=== PATIENT | male | born 1990 | race Caucasian/White ===

== ENCOUNTER 2025-04-07 17:17 | Emergency (ER) | payer OTHER, SELFPAY ==
[2025-04-07] VITALS (21 sets, daily range): BP systolic 124–187; BP diastolic 66–102; PULSE 84–103; RESP 12–54; TEMP 36.6; O2SAT 92–100; BMI 31.7
--- NOTE | 2025-04-07 17:26 | EKG_ITS ---
[address] [address] Test Date: 2025-04-07 Pat Name: Krishan Hutchinson Department: Room: Gender: Male Onboarding Specialist: FABIAN : 1990 Requested By: Order Number: [id number] Reading MD: Tee Garza Measurements Intervals [place] Rate: 84 P: 48 AR: 156 QRS: 22 QRSD: 72 T: 27 QT: 348 QTc: 411 Interpretive Statements Normal sinus rhythm with sinus arrhythmia Electronically Signed On 04-12-2025 0:01:33 PDT by Tee Garza
--- NOTE | 2025-04-07 17:26 | DI.RAD.S_ITS ---
PROCEDURE: XR CHEST 1V INDICATIONS: crushed between heavy machine, abrasion pain Lchest/abd TECHNIQUE: One view of the chest was acquired. COMPARISON: None. FINDINGS: Surgical changes and devices: None. Lungs and pleura: Lungs are clear. No pleural effusions or pneumothorax. Mediastinum: Mediastinal contours appear normal. Heart size is normal. Bones and chest wall: No suspicious bony lesions. Overlying soft tissues appear unremarkable. IMPRESSION: No acute cardiopulmonary abnormality is seen. Approved by: Harrison Rossi M.D. on 04/07/2025 at 16:46
--- NOTE | 2025-04-07 17:26 | DI.CT.S_ITS ---
PROCEDURE: CT TRAUMA CHEST ABDOMEN PELVIS INDICATIONS: trauma TECHNIQUE: After the administration of intravenous contrast, 5 mm thick sections acquired from the lung apices to the symphysis. 2.5 mm thick coronal and sagittal reformats were acquired. Additional 7 mm thick coronal maximum intensity projection (MIP) reformats acquired through the lungs. Optional 10-minute delayed imaging may be performed from the kidneys to the bladder. For radiation dose reduction, the following was used: automated exposure control, adjustment of mA and/or kV according to patient size. COMPARISON: None. FINDINGS: Image quality: Diagnostic. CHEST: Lower Neck: No enlarged lymph nodes. Thyroid: No thyroid nodules which require sonographic evaluation. Axillae: No enlarged lymph nodes. Chest Wall: No subcutaneous gas. Lungs and Pleura: No pulmonary contusions or lacerations. No acute airspace opacities. No pneumothorax or hemothorax. Mediastinum: No mediastinal hematomas. Heart size is normal. No pericardial effusion. Thoracic aorta and pulmonary arteries demonstrate normal size and enhancement. No mediastinal or hilar adenopathy. Esophagus is normal in caliber. No hiatal hernia. ABDOMEN: Liver: No lacerations. Gallbladder: No radiopaque gallstones or wall thickening. Biliary ducts: No biliary dilation. Pancreas: Homogenous enhancement. Spleen: Homogenous enhancement without laceration or hematoma. Adrenal Glands: Symmetric enhancement. Kidneys and Ureters: Symmetric enhancement. No hydronephrosis. No solid mass. No complex renal cystic lesion which requires follow up. Stomach and Bowel: Normal colonic caliber, without significant wall thickening. Peritoneum: No abnormal intraperitoneal fluid. No free air. Ventral Wall: No hernia. Abdominal Nodes: No retroperitoneal or mesenteric adenopathy by size criteria. Vessels: Aorta and inferior vena cava are normal in size. PELVIS: Pelvic Organs: Unremarkable. Bladder: Normal thickness. Pelvic Nodes: No enlarged lymph nodes. Miscellaneous: No inguinal hernias are seen. Bones: Pelvic ring and hip joints appear intact. No displaced rib fractures. IMPRESSION: No evidence of traumatic injury to the chest, abdomen or pelvis. Approved by: Harrison Rossi M.D. on 04/07/2025 at 17:04
--- NOTE | 2025-04-07 17:28 | ED_ITS ---
HPI - Trauma General Chief Complaint: Trauma Stated Complaint: crushed by machine Time Seen by Provider: 04/07/25 17:26 Source: patient, RN notes reviewed and old records reviewed Mode of arrival: Family Vehicle Limitations: no limitations History of Present Illness HPI narrative: 34-year-old male Adderall and trazodone in his only daily medications, no anticoagulants. Patient was at work got crushed between a trailer and a heavy machine that wait about 1500 lb. Patient was bent over the trailer machine came down on his back. He was able to wiggle or pull himself out so his friend at bedside states probably the entire weight was not on him. Patient was stuck for about 15 seconds per bystanders witnessed. Patient has pain on the left side of his chest abdomen and back. Ambulated into the department. Denies injury to his head denies any neck pain, denies any midline back pain. States pain with movement and respirations. Patient does have abrasions over the left anterior chest and back. States it is painful to take a deep breath. Denies nausea or vomiting or other GI or urinary symptoms. Denies any loss of consciousness. Both patient and friend deny any injury to head or neck. Patient denies any other injuries to extremities. States Adderall she was only daily medications, takes trazodone as needed for sleep. Denies any drug allergies. Uses tobacco sometimes. Occasional alcohol none today, no recreational IV drugs. Related Data Previous Rx's ?Medication ?Instructions ?Recorded hydrocodone 5 mg-acetaminophen 325 1 tab PO Q6H PRN pa in #10 tabs 04/07/25 mg tablet Allergies Allergy/AdvReac Type Severity Reaction Status Date / Time No Known Drug Allergies Allergy Verified 04/07/25 17:29 Review of Systems Review of Systems ROS Unobtainable: All systems reviewed & are unremarkable except as noted in HPI and below Patient History Social History Smoking Status: Former smoker Exam Narrative Exam Narrative: GEN: CPatient appears in moderate distress. HEAD: No evidence of trauma, no raccoon/Diaz sign. NECK: Nontender, painless range of motion, trachea midline Negative Nexus criteria, no midline line tenderness, distracting injury, altered mental status, neuro deficit, recent EtOH. EYES: PERRLA, EOMI ENT: External inspection normal, trachea is midline, TM's are normal no hemotypanum, Nares are clear, no septal hematoma, no dental or oral injury, airway is normal and with normal occlusion, No bony tenderness RESP: Chest is mildly tender on the left, no crepitus or subcutaneous emphysema noted and has symmetric movement, no ecchymosis, breath sounds are normal no crackles, wheezes or rales, patient has a erythema and abrasion over the left lower torso and upper abdomen. CVS: Heart sounds are normal, no murmur noted, No JVD. ABG/GI: Mild left upper quadrant tenderness. Soft, normal bowel sounds, no distention, no organomegaly, pelvic rock is negative. NEURO: Oriented AOx3, neuro is grossly intact, sensation and motor is normal all 4 extremities moving, cranial nerves II through XII are intact, GCS is 15 PSYCH: Normal mood and affect SKIN: Intact, warm and dry, no crepitus and without decubitus, see above, no ecchymosis appreciated patient's torso or other extremities neck or head. BACK: No CVA tenderness, no vertebral tenderness, no step-off's, no crepitus EXT: Atraumatic, hips are nontender, no pedal edema, normal color and temperature, normal range of motion of extremities with normal tendon exam, 2+ pulses in all four extremities Initial Vital Signs Initial Vital Signs: Vital Signs Pulse Rate 103 H 04/07/25 17:24 Pulse Oximetry 98 04/07/25 17:24 Course Orders Ordered: Discontinued Medications Hydrocodone Bitart/Acetaminophen (Hydrocodone/Acet 5/325 Prepack) 1 bottle MISC DIRECTED ONE Stop: 04/07/25 18:33 Last Admin: 04/07/25 18:58 Dose: 1 bottle Documented By: LM Diphtheria/Tetanus/Acell Pertussis (Tet,Diph,Pertuss(Acell),Vac/Pf 0.5 Ml Syringe) 0.5 ml IM .ONCE ONE Stop: 04/07/25 17:27 Last Admin: 04/07/25 17:56 Dose: Not Given Documented By: SB Diphtheria/Tetanus/Acell Pertussis (Tet,Diph,Pertuss(Acell),Vac/Pf 0.5 Ml Syringe) 0.5 ml IM .ONCE ONE Stop: 04/07/25 19:06 Last Admin: 04/07/25 19:05 Dose: 0.5 ml Documented By: LM Fentanyl (Fentanyl 100 Mcg/2 Ml Inj) 50 mcg IV NOW ONE Stop: 04/07/25 17:27 Last Admin: 04/07/25 17:47 Dose: 50 mcg Documented By: SB Sodium Chloride (Normal Saline 0.9%) 500 mls @ 1,000 mls/hr IV BOLUS ONE Stop: 04/07/25 18:47 Last Admin: 04/07/25 18:55 Dose: Not Given Documented By: SB Ketorolac Tromethamine (Ketorolac 30 Mg/Ml Vial) 15 mg IV NOW ONE Stop: 04/07/25 18:20 Last Admin: 04/07/25 18:58 Dose: 15 mg Documented By: LM Ondansetron HCl (Ondansetron 4 Mg/2 Ml Inj) 4 mg IV NOW ONE Stop: 04/07/25 17:27 Last Admin: 04/07/25 17:47 Dose: 4 mg Documented By: SB Vital Signs Vital signs: Vital Signs - 8 hr 04/07/25 19:10 04/07/25 19:10 04/07/25 19:20 Pulse Rate 85 87 Respiratory Rate 20 18 Blood Pressure 124/69 Pulse Oximetry 99 99 Oxygen Delivery Method Room Air 04/07/25 19:20 Pulse Rate Respiratory Rate Blood Pressure 127/78 Pulse Oximetry Oxygen Delivery Method MDM - Trauma Lab Data 04/07/25 17:25 04/07/25 17:25 Labs: Lab Results 04/07/25 04/07/25 Range/Units 17:25 18:34 WBC 9.5 (4.5-11.0) X10^3/uL RBC 5.14 (4.5-5.9) X10^6/uL Hgb 15.7 (13.5-17.5) g/dL Hct 45.6 (41-53) % MCV 88.7 (80-100) fL MCH 30.5 (26-34) PG MCHC 34.4 (30-36) % RDW 13.2 (11.6-14.8) % Plt Count 296 (150-400) X10^3/uL Neut % (Auto) 48.6 L (50-75) % Lymph % (Auto) 31.5 (25-40) % [place] % (Auto) 8.4 (3-14) % Eos % (Auto) 10.9 H (2-4) % Baso % (Auto) 0.6 (0-2) % Neut # (Auto) 4600 (5525-2823) /uL Lymph # (Auto) 3000 (4015-8626) /uL [place] # (Auto) 800 (0-900) /uL Eos # (Auto) 1000 H (0-450) /uL Baso # (Auto) 100 (0-100) /uL PT 11.1 (9.4-12.5) SECONDS INR 1.0 (0.9-1.3) APTT 32 (25.1-36.5) SECONDS Sodium 139 (137-145) mmol/L Potassium 4.2 (3.4-5.1) mmol/L Chloride 105 (98-107) mmol/L Carbon Dioxide 23 (22-32) mmol/L BUN 13 (9-20) mg/dL Creatinine 1.24 (0.66-1.25) mg/dL Estimated GFR > 60 (>60) mL/min BUN/Creatinine Ratio 10.5 (6-22) Glucose 105 H (70-99) mg/dL Lactate 1.3 (0.7-2.1) mmol/L Calcium 9.7 (8.4-10.2) mg/dL Total Bilirubin 0.7 (0.2-1.3) mg/dL AST 37 (17-59) IU/L ALT 39 (<50) IU/L Alkaline Phosphatase 78 (38-126) U/L Total Creatine Kinase 293 H (55-170) U/L Troponin I < 0.012 (0.01-0.034) ng/mL Total Protein 8.1 (6.3-8.2) g/dL Albumin 5.0 (3.5-5.0) g/dL Globulin 3.1 (1.7-4.1) g/dL Albumin/Globulin Ratio 1.6 (1.0-2.8) Lipase 61 (23-300) U/L U Opiates 300ng/mL cut Positive H (Negative) Ur Oxycodone Screen Negative (Negative) Urine Methadone Screen Negative (Negative) Ur Barbiturates Screen Negative (Negative) U Tricyclic Antidepress Negative (Negative) Ur Phencyclidine Scrn Negative (Negative) Ur Amphetamines Screen Positive H (Negative) U Methamphetamines Scrn Negative (Negative) Ur MDMA Scrn (Ecstasy) Negative (Negative) U Benzodiazepines Scrn Negative (Negative) Urine Cocaine Screen Negative (Negative) U Marijuana (THC) Screen Negative (Negative) Urine pH Normal (Normal) Urine Specific [place] Normal (Normal) Ethyl Alcohol < 10 (<10) mg/dL Ur Creatinine Normal (Normal) Blood Type O Positive Antibody Screen Negative Urine Dip Bedside Urine Glucose Negative Bedside Urine Bilirubin - Negative Bedside Urine Ketone - Negative Urine Specific [place] 1.015 Bedside Urine Occult Blood - Negative Bedside Urine pH 6.0 Bedside Urine Protein - Negative Bedside Urine Urobilinogen - Negative Bedside Urine Nitrite - Negative Bedside Urine Leukocytes - Negative Esterase ECG Data Attestation: I personally reviewed and interpreted this ECG as follows: Prior ECG tracings: not available for review Interpretation: Sinus rhythm with sinus arrhythmia rate 84 DE 156 QRS is 72 QTC 411. No prior for comparison. MDM Narrative Medical decision making narrative: Labs show normal white count, hemoglobin and platelets, coags are negative, chemistries show normal electrolytes BUN creatinine is 1.24 glucose is 105 lactate 1.3 LFTs are negative total CK is 293. Troponins less than 0.012 with a lipase is 61. ETOH is less than 10. Chest x-ray shows no acute cardiopulmonary abnormality. CT chest abdomen pelvis trauma shows no pulmonary contusions or lacerations, no acute airspace opacities. No pneumothorax or hemothorax. No evidence of traumatic injury to the chest abdomen pelvis review of CT. EKG shows sinus rhythm with sinus arrhythmia, no prior for comparison. Urine Patient had tetanus, Zofran and IV pain medication. Reviewed patient's labs, chest x-ray and CT imaging, no acute changes EKG shows sinus arrhythmia. Patient's vitals has been appropriate and stable. Patient has discomfort but improved with pain medication felt appropriate for discharge but with strict return precautions. Discharge Plan Departure Patient Disposition: Home Clinical Impression: Abrasion of multiple sites of trunk, Contusion of multiple sites of trunk, Crushed injury, trunk Instructions: DI for Trauma Activity Restrictions/Additional Instructions: Follow up for recheck in the next 48-[address] imaging did not show any changes to the chest abdomen or pelvis, you do have some abrasions and contusion to the skin of your chest. You can take pain medication as prescribed. You can take acetaminophen up to a 1000 mg every 6 hours and/or ibuprofen up to 600 mg every 6 hours. If inadequate for pain you can take [place] 1-2 tablets every 6 hours as needed for pain. You can take this instead of acetaminophen but not at the same time. Your maximum amount of acetaminophen is 4000 mg in 24 hours. This medication can make you sleepy do not drive, perform hazardous activities or make any major decisions while taking it. This medication will make you constipated please take a stool softener once to twice daily until stools are soft and regular. Prescription sent to [facility] pharmacy in [place]. Please return for fevers, worsening chest pain, increasing or new shortness of breath, lightheadedness or passing out, vomiting, black or bloody stools, difficulty or inability to urinate, new bruising or skin changes that are changing rapidly. Prescriptions: New hydrocodone-acetaminophen 5-325 mg tablet 1 tab PO Q6H PRN (Reason: pain) Qty: 10 0RF Stand Alone Forms: Patient Portal/API, Work Release Note
[2025-04-07 17:40] LABS: Add Manual Diff / Slide Review NO; Basophils Absolute Auto 100 /uL (0-100); Basophils Percent Auto 0.6 % (0-2); Eosinophils Absolute Auto 1000 /uL (0-450); Eosinophils Percent Auto 10.9 % (2-4); Hematocrit 45.6 % (41-53); Hemoglobin 15.7 g/dL (13.5-17.5); Lymphocytes Absolute Auto 3000 /uL (1100-4500); Lymphocytes Percent Auto 31.5 % (25-40); Mean Corpuscular HGB Conc 34.4 % (30-36); Mean Corpuscular Hemoglobin 30.5 PG (26-34); Mean Corpuscular Volume 88.7 fL (80-100); Monocytes Absolute Auto 800 /uL (0-900); Monocytes Percent Auto 8.4 % (3-14); Neutrophils Absolute Auto 4600 /uL (1500-7000); Neutrophils Percent Auto 48.6 % (50-75); Platelet Count 296 X10^3/uL (150-400); Red Blood Cell Count 5.14 X10^6/uL (4.5-5.9); Red Cell Distribution Width 13.2 % (11.6-14.8); White Blood Cell Count 9.5 X10^3/uL (4.5-11.0)
[2025-04-07 17:46] LABS: Lactate (Lactic Acid) 1.3 mmol/L (0.7-2.1); Prothrombin Time 11.1 SECONDS (9.4-12.5)
[2025-04-07 17:47] LABS: Alanine Aminotransferase 39 IU/L (<50); Albumin Globulin Ratio 1.6 (1.0-2.8); Alkaline Phosphatase 78 U/L (38-126); Aspartate Aminotransferase 37 IU/L (17-59); BUN Creatinine Ratio 10.5 (6-22); Bilirubin Total 0.7 mg/dL (0.2-1.3); Blood Urea Nitrogen 13 mg/dL (9-20); Calcium 9.7 mg/dL (8.4-10.2); Carbon Dioxide 23 mmol/L (22-32); Chloride 105 mmol/L (98-107); Creatine Kinase 293 U/L (55-170); Estimated Glomerular Filt Rate > 60 mL/min (>60); Ethanol (ETOH) < 10 mg/dL (<10); Globulin 3.1 g/dL (1.7-4.1); Glucose 105 mg/dL (70-99); HEMOLYSIS 18 (0-50); Lipase 61 U/L (23-300); Potassium 4.2 mmol/L (3.4-5.1); Sodium 139 mmol/L (137-145); Total Protein 8.1 g/dL (6.3-8.2)
[2025-04-07] MEDS: ONDANSETRON 4 MG/2 ML INJ IV (17:47)
[2025-04-07] MEDS: fentaNYL 100 MCG/2 ML INJ 50 MCG IV (17:47)
[2025-04-07 17:49] LABS: PTT Partial Thromboplastin Tim 32 SECONDS (25.1-36.5)
[2025-04-07 17:58] LABS: Troponin I < 0.012 ng/mL (0.01-0.034)
[2025-04-07] MEDS: KETOROLAC 30 MG/ML VIAL 15 MG IV (18:58)
[2025-04-07] MEDS: HYDROCODONE/ACET 5/325 PREPACK 1 BOTTLE MISC (18:58)
[2025-04-07 19:01] LABS: Ur Creatinine Normal (Normal); Ur Specific Gravity Normal (Normal)
[2025-04-07 19:02] LABS: Urine Amphetamines Positive (Negative); Urine Barbiturates Negative (Negative); Urine Benzodiazepines Negative (Negative); Urine Cocaine Negative (Negative); Urine MDMA Negative (Negative); Urine Methadone Negative (Negative); Urine Opiates Positive (Negative); Urine Oxycodone Negative (Negative); Urine Phencyclidine Negative (Negative); Urine THC Negative (Negative); Urine Tricyclic Antidepressant Negative (Negative); Urine pH Normal (Normal)
[2025-04-07] MEDS: TET,DIPH,PERTUSS(ACELL),VAC/PF 0.5 ML SYRINGE IM (19:05)
== END 2025-04-07 19:35 | disposition home or self-care (01) ==
PROVIDERS: Emergency Provider Emergency Medicine
DX: S30.811A Abrasion of abdominal wall, initial encounter (principal); S20.20XA Contusion of thorax, unspecified, initial encounter; X58.XXXA Exposure to other specified factors, initial encounter; Z23 Encounter for immunization
CPT/HCPCS: 36415; 71045; 71275; 74177; 80053; 80305; 80320; 81003; 82550; 83605; 83690; 84484; 85025; 85610; 85730; 86850; 86900; 86901; 90471; 93005; 96374; 96375; 99284; 90715; J1885; J2405; J3010; Q9967